=== PATIENT | female | born 1945 | race Caucasian/White ===

== ENCOUNTER 2017-05-31 10:14 | Outpatient (CLI) | payer OTHER, MEDICARE | END 2017-05-31 20:08 | disposition home or self-care (01) | LOC: SMA 10:14 | PROVIDERS: ATTEND Internal Medicine | DX: Z12.31 Encounter for screening mammogram for malignant neoplasm of breast (principal) | CPT/HCPCS: G0202 ==

== ENCOUNTER 2018-08-18 09:14 | Outpatient (CLI) | payer OTHER, MEDICARE | END 2018-08-18 18:58 | disposition home or self-care (01) | LOC: SMA 09:14 | PROVIDERS: ATTEND Internal Medicine | DX: Z12.31 Encounter for screening mammogram for malignant neoplasm of breast (principal) | CPT/HCPCS: 77067 ==

== ENCOUNTER 2020-09-27 10:54 | Outpatient (CLI) | payer OTHER, MEDICARE | END 2020-09-27 20:25 | disposition home or self-care (01) | LOC: SMA 10:54 | PROVIDERS: ATTEND Internal Medicine | DX: Z12.31 Encounter for screening mammogram for malignant neoplasm of breast (principal); N64.89 Other specified disorders of breast | CPT/HCPCS: 77067 ==

== ENCOUNTER 2022-01-06 08:52 | Outpatient (CLI) | payer OTHER, MEDICARE | END 2022-01-06 20:52 | disposition home or self-care (01) | LOC: SMA 08:52 | PROVIDERS: ATTEND Internal Medicine | DX: Z12.31 Encounter for screening mammogram for malignant neoplasm of breast (principal); N64.89 Other specified disorders of breast | CPT/HCPCS: 77067 ==